=== PATIENT | male | born 1925 | race Caucasian/White ===

== ENCOUNTER → 2016-08-29 | Outpatient (CLI) | payer OTHER ==
--- NOTE | 2016-08-29 15:26 | CT ---
CT Pelvis, Without Contrast Indication: Follow up iliac lesion. History of bladder cancer. Technique: 1.25-mm thick helically acquired slices were obtained through the pelvis. No oral or IV contrast was administered. Comparison: CT pelvis dated March 01, 2016, August 10, 2015, bone scan dated July 28, 2015. Findings: The 3 x 2 cm lytic lesion in the right posterior ilium, with well-circumscribed cortical t hickening, is unchanged in size and characteristics since one year prior. No cortical breakthrough o r soft tissue mass has developed. No new bone lesions have developed. Demineralization and severe degenerative disk disease at L4-L5 a nd L5-S1 are unchanged. No intraabdominal mass, lymphadenopathy, or free fluid has developed. Prostatic hypertrophy, constip ation, and sigmoid diverticulosis are all unchanged. Impression: 1. Indeterminate right iliac bone lesion is unchanged since at least one year prior. 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 Recommend continued intermi ttent surveillance versus needle biopsy. 2. No new bone lesion, lymphadenopathy, or mass. 3. Sigmoid diverticulosis is unchanged.
== END ==
LOC: FIMAGING 08:54
PROVIDERS: ATTEND Family Medicine
DX: M84.851 Other disorders of continuity of bone, right pelvic region and thigh (principal)

== ENCOUNTER 2016-09-20 17:08 | Emergency (ER) | payer OTHER ==
[2016-09-20 17:16] VITALS: RESP 18
[2016-09-20] MEDS ORDERED: NS 1,000 ML IV ONE (17:21)
--- NOTE | 2016-09-20 17:35 | EDPHY ---
H & P Stated Complaint: unable to pee since this am--8 days ago had bladder tumors removed HPI/ROS: HPI CHIEF COMPLAINT: "I cannot urinate" HISTORY OF PRESENT ILLNESS: Patient very pleasant 89-year-old male, significant past medical history for bladder CA, hypertension, presents to the emergency room after he states that he has not been able to urinate since 10:00 a.m. and is having bladder distention abdominal pain in his lower abdominal region. Patient states that he had tumors removed from his bladder on September [address] Sellers at [facility]. this was done at an outpatient surgical center he did not go home with a Messina catheter as it was felt that he did not need one. He states he started having some blood in his urine on Saturday. He denies fever, back pain, vomiting, nausea, chest pain or shortness of breath. Past Medical History: Hypertension, bladder CA Past Surgical History:kyphoplasty, recent bladder surgery Social History: Denies use of drugs alcohol tobacco products Family History: Noncontributory ROS REVIEW OF SYSTEMS: A comprehensive 10 point review of systems is otherwise negative aside from elements mentioned in the history of present illness. Exam Constitutional triage nursing summary reviewed, vital signs reviewed, awake/ alert. Eyes normal conjunctivae and sclera, EOMI, PERRLA. HENT normal inspection, atraumatic, moist mucus membranes, no epistaxis, neck supple/ no meningismus, no raccoon eyes. Respiratory clear to auscultation bilaterally, normal breath sounds, no respiratory distress, no wheezing. Cardiovascular rate normal, regular rhythm, no murmur, no edema, distal pulses normal. Gastrointestinal distended abdomen, tender palpation over the bladder, no rebound, no guarding, normal bowel sounds, no distension, no pulsatile mass. Genitourinary no CVA tenderness. Musculoskeletal no midline vertebral tenderness, full range of motion, no calf swelling, no tenderness of extremities, no meningismus, good pulses, neurovascularly intact. Skin pink, warm, & dry, no rash, skin atraumatic. Neurologic awake, alert and oriented x 3, AAOx3, moves all 4 extremities equally, motor intact, sensory intact, CN II-XII intact, normal cerebellar, normal vision, normal speech. Psychiatric normal mood/affect. Heme/Lymph/Immune no lymphadenopathy. Differential Diagnosis: includes but is not limited to in a particular order urinary obstruction, renal failure, urinary tract infection, blood clot leading to out flow obstruction Medical Decision Making: Patient had a bladder scan cm much urine in his bladder, most likely patient will need a Messina catheter placed for urinary obstruction. Check urinalysis basic blood work including creatinine, will gently hydrate. Re-evaluation: Bladder scan was performed this patient had over 300 cc of urine. Patient was unable to urinate. A Messina was placed. 500 cc of blood tinged urine was drained. Urinalysis pending at this time. 1938: patient drained approximately 700 cc of blood tinged urine. He feels much better. Abdomen is soft. No vomiting no fever no back pain. Creatinine is at his baseline creatinine. 1st urinalysis was too bloody day analyze. 2nd urinalysis sent show signs of infection I have ordered 1 g Rocephin and urine culture. Will place patient on Keflex. Patient will go home with his indwelling Messina due to urinary obstruction. Patient understands he needs to follow up with his urologist to have his Messina removed. Return to the emergency room if he has any worsening symptoms includes abdominal pain, fever, vomiting his Messina catheter is not draining or continues to have large amount of blood come out. He understands this. Dr. Acosta with Urology has been consulted. Reviewed his case. Will talk to Dr. Sellers and will have follow-up in place. Understands he is going home with a Messina catheter. Strict return precautions were given to the patient understands return to the ER develops any worsening symptoms includes abdominal pain, fever, vomiting. Worse catheter obstruction. We discussed about up sizing his catheter however his catheter this time is draining without any blood. Clear fluid. Urinalysis does show a white blood cells unlikely to be infection however will cover with Keflex just in case. Urine culture pending. White blood cell count most likely due to large amount of red blood cells. Source: Patient - Personal History Current Tetanus/Diphtheria Vaccine: Unsure Current Tetanus Diphtheria and Acellular Pertussis (TDAP): Unsure - Medical/Surgical History Hx Asthma: No Hx Chronic Respiratory Disease: No Hx Diabetes: No Hx Cardiac Disease: No Hx Renal Disease: No Hx Cirrhosis: No Hx Alcoholism: No Hx HIV/AIDS: No Hx Splenectomy or Spleen Trauma: No Other PMH: bladder cancer - Social History Smoking Status: Never smoked Constitutional: Initial Vital Signs Temperature (C) 36.6 C 09/20/16 17:13 Heart Rate 87 09/20/16 17:13 Respiratory Rate 18 09/20/16 17:13 Blood Pressure 192/87 H 09/20/16 17:13 O2 Sat (%) 94 09/20/16 17:13 O2 Delivery Mode Room Air Allergies/Adverse Reactions: No Known Allergies Allergy (Unverified 01/20/14 11:53) Home Medications: Medication Instructions Recorded Herbals/Supplements -Info Only 1 ea PO DAILY 12/30/13 LORazepam [Ativan (*)] 1 mg PO HS 12/30/13 Levothyroxine [Synthroid 50 mcg 50 mcg PO DAILY06 12/30/13 (*)] Naproxen Sodium [Aleve 220 MG (*)] 220 mg PO DAILY 12/30/13 Simvastatin [Zocor 20 mg] 20 mg PO DAILY18 12/30/13 Tamsulosin HCl [Flomax 0.4 MG (*)] 0.4 mg PO DAILY 12/30/13 Hydrocodone/APAP 5/325 [[place] 1 - 2 tab PO Q4-6PRN PRN #15 tab 01/21/14 5/325 (*)] Lidocaine 2% Jelly [Lidocaine 2% 1 ml MM PRN PRN #1 tube 01/21/14 Jelly 30 gm (RX)] Cephalexin [Keflex] 500 mg PO Q6H #28 cap 09/20/16 Medical Decision Making - Data Points Laboratory Results: Laboratory Results 09/20/16 17:00 09/20/16 17:00 09/20/16 09/20/16 09/20/16 19:20 18:25 17:00 WBC RBC Hgb Hct MCV MCH MCHC RDW Plt Count MPV Neut % (Auto) Lymph % (Auto) [place] % (Auto) Eos % (Auto) Baso % (Auto) Nucleat RBC Rel Count Absolute Neuts (auto) Absolute Lymphs (auto) Absolute Monos (auto) Absolute Eos (auto) Absolute Basos (auto) Absolute Nucleated RBC Immature Gran % Immature Gran # PT INR APTT Sodium 134 mEq/L mEq/L (134-144) Potassium 4.7 mEq/L mEq/L (3.5-5.2) Chloride 99 mEq/L mEq/L (97-110) Carbon Dioxide 22 mEq/l mEq/l (22-31) Anion Gap 13 mEq/L mEq/L (8-16) BUN 37 mg/dL H mg/dL (7-23) Creatinine 1.7 mg/dL H mg/dL (0.7-1.3) Estimated GFR 38 Glucose 89 mg/dL mg/dL (70-100) Calcium 9.4 mg/dL mg/dL (8.5-10.4) Urine Color RED RED Urine Appearance HAZY TURBID Urine pH 6.0 TNP (5.0-7.5) Ur Specific [place] 1.008 TNP (1.002-1.030) Urine Protein 2+ H TNP (NEGATIVE) Urine Ketones NEGATIVE TNP (NEGATIVE) Urine Blood 2+ H TNP (NEGATIVE) Urine Nitrate NEGATIVE TNP (NEGATIVE) Urine Bilirubin NEGATIVE TNP (NEGATIVE) Urine Urobilinogen NEGATIVE EU EU TNP (0.2-1.0) Ur Leukocyte Esterase TRACE H TNP (NEGATIVE) Urine RBC 50-182 /hpf H /hpf (0-3) Urine WBC 50-182 /hpf H /hpf (0-3) Ur Epithelial Cells TRACE /lpf /lpf (NONE-1+) Urine Bacteria TRACE /hpf H /hpf (NONE SEEN) Ur Culture Indicated? INDICATED H INDICATED H (NI) (NI) Urine Glucose 1+ H TNP (NEGATIVE) 09/20/16 09/20/16 17:00 17:00 WBC 12.10 10^3/uL H 10^3/uL (3.80-9.50) RBC 4.36 10^6/uL L 10^6/uL (4.40-6.38) Hgb 14.2 g/dL g/dL (13.7-17.5) Hct 40.1 % % (40.0-51.0) MCV 92.0 fL fL (81.5-99.8) MCH 32.6 pg pg (27.9-34.1) MCHC 35.4 g/dL g/dL (32.4-36.7) RDW 13.2 % % (11.5-15.2) Plt Count 334 10^3/uL 10^3/uL (150-400) MPV 9.7 fL fL (8.7-11.7) Neut % (Auto) 69.0 % % (39.3-74.2) Lymph % (Auto) 17.2 % % (15.0-45.0) [place] % (Auto) 10.4 % % (4.5-13.0) Eos % (Auto) 2.3 % % (0.6-7.6) Baso % (Auto) 0.7 % % (0.3-1.7) Nucleat RBC Rel Count 0.0 % % (0.0-0.2) Absolute Neuts (auto) 8.34 10^3/uL H 10^3/uL (1.70-6.50) Absolute Lymphs (auto) 2.08 10^3/uL 10^3/uL (1.00-3.00) Absolute Monos (auto) 1.26 10^3/uL H 10^3/uL (0.30-0.80) Absolute Eos (auto) 0.28 10^3/uL 10^3/uL (0.03-0.40) Absolute Basos (auto) 0.09 10^3/uL 10^3/uL (0.02-0.10) Absolute Nucleated RBC 0.00 10^3/uL 10^3/uL (0-0.01) Immature Gran % 0.4 % % (0.0-1.1) Immature Gran # 0.05 10^3/uL 10^3/uL (0.00-0.10) PT 13.1 SEC SEC (12.0-15.0) INR 1.00 (0.83-1.16) APTT 30.8 SEC SEC (23.0-38.0) Sodium Potassium Chloride Carbon Dioxide Anion Gap BUN Creatinine Estimated GFR Glucose Calcium Urine Color Urine Appearance Urine pH Ur Specific [place] Urine Protein Urine Ketones Urine Blood Urine Nitrate Urine Bilirubin Urine Urobilinogen Ur Leukocyte Esterase Urine RBC Urine WBC Ur Epithelial Cells Urine Bacteria Ur Culture Indicated? Urine Glucose Medications Given: Discontinued Medications Sodium Chloride (Ns) 1,000 mls @ 0 mls/hr IV ONCE ONE PRN Reason: Wide Open Stop: 09/20/16 17:22 Last Admin: 09/20/16 18:02 Dose: 1,000 mls Ceftriaxone Sodium/Dextrose (Rocephin 1 Gm (Premix)) 50 mls @ 100 mls/hr IV EDNOW ONE PRN Reason: Protocol Stop: 09/20/16 20:06 Last Admin: 09/20/16 19:48 Dose: 50 mls Departure - Departure Disposition: Home, Routine, Self-Care Clinical Impression: Urinary obstruction Condition: Good Instructions: [facility] Patient Education, Infection Prevention, Messina Catheter Placement and Care (ED) Additional Instructions: 1.Make sure to drink lots of fluids. 2. Please follow up with your urologist about your indwelling Messina catheter. You need to see urologist in the next 3-5 days. 3.Return emergency room if you are unable to urinate or your Messina catheter stops draining. 4. Please drink lots of fluids stay well-hydrated return to the emergency room if develops abdominal pain, fever, vomiting trouble with your catheter. 5. I prefer that you follow up with your urologist however you have trouble getting and I have referred you to our urologist on-call Dr. Rangel Referrals: Arron Ambrocio [Primary Care Provider] - As per Instructions Codie Rangel MD [Medical Doctor] - As per Instructions Prescriptions: Cephalexin [Keflex] 500 mg PO Q6H #28 cap
[2016-09-20 18:31] LABS: % IMMATURE GRANULYOCYTES 0.4 % (0.0-1.1); ABSOLUTE IMMATURE GRANULOCYTES 0.05 10^3/uL (0.00-0.10); ADD DIFF? NO; ADD MORPH? NO; ADD SCAN? NO; ATYPICAL LYMPHOCYTE FLAG 10 (0-99); FRAGMENT RBC FLAG 0 (0-99); HEMATOCRIT 40.1 % (40.0-51.0); HEMOGLOBIN 14.2 g/dL (13.7-17.5); LEFT SHIFT FLG 0 (0-99); LIPEMIA HEMOLYSIS FLAG 90 (0-99); MEAN CELL HEMOGLOBIN 32.6 pg (27.9-34.1); MEAN CELL HEMOGLOBIN CONCENTR. 35.4 g/dL (32.4-36.7); MEAN PLATELET VOLUME 9.7 fL (8.7-11.7); PLATELET CLUMPS FLAG 20 (0-99); PLATELET COUNT 334 10^3/uL (150-400); RED BLOOD CELL COUNT 4.36 10^6/uL (4.40-6.38); RED CELL DISTRIBUTION WIDTH 13.2 % (11.5-15.2)
[2016-09-20 18:43] LABS: APTT 30.8 SEC (23.0-38.0); PROTIME(PATIENT) 13.1 SEC (12.0-15.0)
[2016-09-20 18:44] LABS: ANION GAP 13 mEq/L (8-16); CALCIUM 9.4 mg/dL (8.5-10.4); CARBON DIOXIDE 22 mEq/l (22-31); CHLORIDE 99 mEq/L (97-110); CREATININE 1.7 mg/dL (0.7-1.3); GLOMERULAR FILTRATION RATE 38; GLUCOSE 89 mg/dL (70-100); POTASSIUM 4.7 mEq/L (3.5-5.2); SODIUM 134 mEq/L (134-144)
[2016-09-20 18:54] LABS: COLOR RED
[2016-09-20 19:31] LABS: COLOR RED; LEUKOCYTE ESTERASE,URINE TRACE (NEGATIVE); NITRITE,URINE NEGATIVE (NEGATIVE)
[2016-09-20 19:42] LABS: BACTERIA TRACE /hpf (NONE SEEN); RBC,URINE 50-182 /hpf (0-3); WBC,URINE 50-182 /hpf (0-3)
[2016-09-20 22:12] VITALS: BP 154/64; PULSE 66; TEMP 97.5; O2SAT 93
== END 2016-09-20 22:07 | disposition home or self-care (01) ==
PROC: 0T9B70Z Drainage of Bladder with Drainage Device, Via Natural or Artificial Opening (ICD-10-PCS; principal; 2016-09-20)
DX: N13.9 Obstructive and reflux uropathy, unspecified (principal); I10 Essential (primary) hypertension; Z85.51 Personal history of malignant neoplasm of bladder
CPT/HCPCS: 51702; 96361; 96365; 99284; J0696

== ENCOUNTER 2016-09-29 20:00 | Emergency (ER) | payer OTHER ==
[2016-09-29 20:10] VITALS: RESP 16
--- NOTE | 2016-09-29 20:42 | EDPHY ---
H & P Stated Complaint: unable to urinate since this am--bladder surgery 09/12 Time Seen by Provider: 09/29/16 20:17 HPI/ROS: CHIEF COMPLAINT: "I can not urinate" HISTORY OF PRESENT ILLNESS: 89-year-old male medical history significant for bladder cancer, hypertension, urinary retention, last seen in the ER 8 days ago for same complaint which point he was catheterized, discharged home had his Messina catheter removed few days later by Dr Sellers, returns to the ER with complaining of urinary retention, passage of clots since this morning. He has had small amount of urine that has been passing however last full urine output was in noon today. Complaining of suprapubic pressure. No back or flank pain. No lower extremity radiculopathy. No fever no chills. No vomiting no nausea no chest pain or dyspnea. REVIEW OF SYSTEMS: A ten point review of systems was performed and is negative with the exception of the items mentioned in the HPI PAST MEDICAL & SURGICAL HISTORY: Bladder cancer. Hypertension. Recent bladder surgery SOCIAL HISTORY: nonsmoker PHYSICAL EXAM (Prior to examination, patient consented to physical exam, hands were washed and my usual and customary physical exam procedures followed) 1) GENERAL: Well-developed, well-nourished, alert and oriented. Appears to be in no acute distress. 2) HEAD: Normocephalic, atraumatic 3) HEENT: Pupils equal, round, reactive to light bilaterally. Sclera anicteric. 4) NECK: Full range of motion, no meningeal signs. 5) LUNGS: Clear auscultation bilaterally, no wheezes, no rhonchi, no retractions. 6) HEART: Regular rate and rhythm, no murmur, no heave, no gallop. 7) ABDOMEN: No guarding, tender to palpation suprapubic region overlying bladder , no rebound, no focal tenderness, negative McBurney's, negative Hernandez's, negative Rovsing's, negative peritoneal sign, 8) MUSCULOSKELETAL: Moving all extremities, no focal areas of tenderness, no obvious trauma. No peripheral edema or discoloration. 9) BACK: No CVA tenderness, no midline vertebral tenderness, no fluctuance, no step-off, no obvious trauma, no visual or palpable abnormality. Patella Achilles reflexes intact to bilateral strength 5/5 10) SKIN: No rash, no petechiae. 11) : Circumcised, no urethral discharge, there is some dried bloody discharge in his diaper. DIFFERENTIAL DIAGNOSIS: in no particular include but limited to urinary tract infection, urinary retention, cauda equina - Medical/Surgical History Hx Asthma: No Hx Chronic Respiratory Disease: No Hx Diabetes: No Hx Cardiac Disease: No Hx Renal Disease: No Hx Cirrhosis: No Hx Alcoholism: No Hx HIV/AIDS: No Hx Splenectomy or Spleen Trauma: No Other PMH: bladder cancer -tumor removal 09/12 druze - Social History Smoking Status: Never smoked Constitutional: Initial Vital Signs Temperature (C) 36.9 C 09/29/16 20:06 Heart Rate 68 09/29/16 20:06 Respiratory Rate 16 09/29/16 20:06 Blood Pressure 140/63 H 09/29/16 20:06 O2 Sat (%) 97 09/29/16 20:06 O2 Delivery Mode Room Air Allergies/Adverse Reactions: No Known Allergies Allergy (Unverified 01/20/14 11:53) Home Medications: Medication Instructions Recorded Herbals/Supplements -Info Only 1 ea PO DAILY 12/30/13 LORazepam [Ativan (*)] 1 mg PO HS 12/30/13 Levothyroxine [Synthroid 50 mcg 50 mcg PO DAILY06 12/30/13 (*)] Naproxen Sodium [Aleve 220 MG (*)] 220 mg PO DAILY 12/30/13 Simvastatin [Zocor 20 mg] 20 mg PO DAILY18 12/30/13 Tamsulosin HCl [Flomax 0.4 MG (*)] 0.4 mg PO DAILY 12/30/13 Hydrocodone/APAP 5/325 [[place] 1 - 2 tab PO Q4-6PRN PRN #15 tab 01/21/14 5/325 (*)] Lidocaine 2% Jelly [Lidocaine 2% 1 ml MM PRN PRN #1 tube 01/21/14 Jelly 30 gm (RX)] Cephalexin [Keflex] 500 mg PO Q6H #28 cap 09/20/16 Cephalexin [Keflex] 500 mg PO TID 7 Days 09/29/16 Medical Decision Making ED Course/Re-evaluation: Patient has been re-evaluated with serial exams. His urinalysis is positive for bacteriuria. He has been given dose of Rocephin and given prescription for Keflex. Urine is cultured. Today is Saturday. Recommend he follow up with his urologist on Saturday. Doubt urosepsis. Blood work was checked and he is noted to have a decrease in his H&H verses last ER visit. He is hemodynamically stable. I do not think that admission is currently indicated. Do not think that emergent transfusion is indicated. His creatinine is elevated at 1.4 which is decreased versus prior ER visit 1.7. I think the patient can be discharged home. Have offered admission and he would like to be discharged. He feels comfortable being discharged home. - Data Points Laboratory Results: Laboratory Results 09/29/16 22:12 09/29/16 22:12 09/29/16 09/29/16 09/29/16 22:12 22:12 21:45 WBC 12.31 10^3/uL H 10^3/uL (3.80-9.50) RBC 3.78 10^6/uL L 10^6/uL (4.40-6.38) Hgb 11.9 g/dL L g/dL (13.7-17.5) Hct 34.2 % L % (40.0-51.0) MCV 90.5 fL fL (81.5-99.8) MCH 31.5 pg pg (27.9-34.1) MCHC 34.8 g/dL g/dL (32.4-36.7) RDW 13.0 % % (11.5-15.2) Plt Count 309 10^3/uL 10^3/uL (150-400) MPV 8.8 fL fL (8.7-11.7) Neut % (Auto) 59.0 % % (39.3-74.2) Lymph % (Auto) 23.4 % % (15.0-45.0) [place] % (Auto) 13.4 % H % (4.5-13.0) Eos % (Auto) 3.1 % % (0.6-7.6) Baso % (Auto) 0.7 % % (0.3-1.7) Nucleat RBC Rel Count 0.0 % % (0.0-0.2) Absolute Neuts (auto) 7.26 10^3/uL H 10^3/uL (1.70-6.50) Absolute Lymphs (auto) 2.88 10^3/uL 10^3/uL (1.00-3.00) Absolute Monos (auto) 1.65 10^3/uL H 10^3/uL (0.30-0.80) Absolute Eos (auto) 0.38 10^3/uL 10^3/uL (0.03-0.40) Absolute Basos (auto) 0.09 10^3/uL 10^3/uL (0.02-0.10) Absolute Nucleated RBC 0.00 10^3/uL 10^3/uL (0-0.01) Immature Gran % 0.4 % % (0.0-1.1) Immature Gran # 0.05 10^3/uL 10^3/uL (0.00-0.10) Sodium 130 mEq/L L mEq/L (134-144) Potassium 3.7 mEq/L mEq/L (3.5-5.2) Chloride 94 mEq/L L mEq/L (97-110) Carbon Dioxide 27 mEq/l mEq/l (22-31) Anion Gap 9 mEq/L mEq/L (8-16) BUN 32 mg/dL H mg/dL (7-23) Creatinine 1.4 mg/dL H mg/dL (0.7-1.3) Estimated GFR 48 Glucose 101 mg/dL H mg/dL (70-100) Calcium 8.8 mg/dL mg/dL (8.5-10.4) Urine Color RED Urine Appearance HAZY Urine pH 6.0 (5.0-7.5) Ur Specific [place] 1.009 (1.002-1.030) Urine Protein 2+ H (NEGATIVE) Urine Ketones NEGATIVE (NEGATIVE) Urine Blood 2+ H (NEGATIVE) Urine Nitrate NEGATIVE (NEGATIVE) Urine Bilirubin NEGATIVE (NEGATIVE) Urine Urobilinogen NEGATIVE EU EU (0.2-1.0) Ur Leukocyte Esterase NEGATIVE (NEGATIVE) Urine RBC 50-182 /hpf H /hpf (0-3) Urine WBC 10-15 /hpf H /hpf (0-3) Ur Epithelial Cells NONE SEEN /lpf /lpf (NONE-1+) Urine Bacteria 3+ /hpf H /hpf (NONE SEEN) Urine Glucose 1+ H (NEGATIVE) Departure - Departure Disposition: Home, Routine, Self-Care Clinical Impression: Urinary retention Urinary tract infection Qualifiers: Urinary tract infection type: acute cystitis Hematuria presence: with hematuria Qualified Code(s): N30.01 - Acute cystitis with hematuria Condition: Good Instructions: Urinary Retention in Men (ED) Referrals: Kaushal Kiran MD [Medical Doctor] - As per Instructions Prescriptions: Cephalexin [Keflex] 500 mg PO TID 7 Days
[2016-09-29 22:06] LABS: COLOR RED; LEUKOCYTE ESTERASE,URINE NEGATIVE (NEGATIVE); NITRITE,URINE NEGATIVE (NEGATIVE)
[2016-09-29 22:12] LABS: BACTERIA 3+ /hpf (NONE SEEN); RBC,URINE 50-182 /hpf (0-3)
[2016-09-29 22:26] LABS: % IMMATURE GRANULYOCYTES 0.4 % (0.0-1.1); ABSOLUTE IMMATURE GRANULOCYTES 0.05 10^3/uL (0.00-0.10); ADD DIFF? NO; ADD MORPH? NO; ADD SCAN? NO; ATYPICAL LYMPHOCYTE FLAG 20 (0-99); FRAGMENT RBC FLAG 0 (0-99); HEMATOCRIT 34.2 % (40.0-51.0); HEMOGLOBIN 11.9 g/dL (13.7-17.5); LEFT SHIFT FLG 0 (0-99); LIPEMIA HEMOLYSIS FLAG 90 (0-99); MEAN CELL HEMOGLOBIN 31.5 pg (27.9-34.1); MEAN CELL HEMOGLOBIN CONCENTR. 34.8 g/dL (32.4-36.7); MEAN CELL VOLUME 90.5 fL (81.5-99.8); MEAN PLATELET VOLUME 8.8 fL (8.7-11.7); PLATELET CLUMPS FLAG 0 (0-99); PLATELET COUNT 309 10^3/uL (150-400); RED BLOOD CELL COUNT 3.78 10^6/uL (4.40-6.38)
[2016-09-29 22:36] LABS: CALCIUM 8.8 mg/dL (8.5-10.4); CARBON DIOXIDE 27 mEq/l (22-31); CHLORIDE 94 mEq/L (97-110); CREATININE 1.4 mg/dL (0.7-1.3); GLOMERULAR FILTRATION RATE 48; GLUCOSE 101 mg/dL (70-100); SODIUM 130 mEq/L (134-144)
[2016-09-29 22:40] LABS: ANION GAP 9 mEq/L (8-16); POTASSIUM 3.7 mEq/L (3.5-5.2)
[2016-09-30 00:05] VITALS: BP 135/56; PULSE 55; TEMP 97.5; O2SAT 91
== END 2016-09-30 00:07 | disposition home or self-care (01) ==
DX: N30.01 Acute cystitis with hematuria (principal); B96.89 Other specified bacterial agents as the cause of diseases classified elsewhere; I10 Essential (primary) hypertension; Z85.51 Personal history of malignant neoplasm of bladder
CPT/HCPCS: 96374; 99284; J0696